=== PATIENT | male | born 1970 | race Caucasian/White ===

== ENCOUNTER 2021-03-15 22:52 | Inpatient (IN) ==
--- NOTE | 2021-03-15 23:14 | Emergency Department Note ---
History of Present Illness General Chief complaint: Mental Health Evaluation Stated complaint: MENTAL HEALTH EVAL Time Seen by Provider: 03/15/21 23:05 Source: patient and police Mode of arrival: EMS Limitations: no limitations History of Present Illness Provider complaint: mental health evaluation This is a 50-year-old male presents emergency department for mental health evaluation. Patient brought in by police and EMS. Per police report patient walked up to staff at a fire station, told them he was not feeling well and had thoughts of hurting himself. He then attempted to run away at which point he was tackled by one of the volunteer firefighters, and during the struggle attempted to wrap a hose around his neck. Please report fire staff denied that he ever lost consciousness or had any trouble breathing. Patient denies any pain or concern for injury from this event. He denies any difficulty swall owing, difficulty breathing, sense of neck swelling or pain. Patient states he does take multiple medications and did consume alcohol this evening. He denies any recreational drug use. Pt seen during a time of high acuity and national emergency pandemic while wearing PPE. Home Medications Medication Instructions Recorded Confirmed Type Gabapentin (Neurontin) 300 mg PO TID #0 04/01/08 History Mirtazapine 15 mg PO HS #0 06/20/14 History ATORVASTATIN (LIPITOR) 20 mg PO DAILY #30 06/27/14 History Prednisone 20 mg PO DAILY 3 Days #0 06/27/14 History OXYCODONE/ACETAMINOPHEN 5MG/325MG 1 - 2 tabs PO Q4H PRN #0 tab 07/05/14 History (PERCOCET 5MG/325MG) Allergies Allergy/AdvReac Type Severity Reaction Status Date / Time No Known Allergies Allergy Unverified 07/05/14 01:41 Past Med/Surg History Social History Smoking Status: Never smoker Tobacco Type: Smokeless Tobacco (Dip or Chew) Hx Alcohol Use: Yes Alcohol type: hard liquor Hx Substance Use: No Preferred Language: Jamaican Communication Ability: Effective Clinical Material Handler Required: No Beliefs That Will Affect Care: None Current Living Situation: Alone Feels Safe at Home: Yes Assistive Devices: None Review of Systems A total of 10 systems reviewed and were otherwise negative All systems reviewed & are unremarkable except as noted in HPI & below Physical Exam Vital Signs Vital Signs - 24 hr 03/15/21 23:11 03/16/21 01:54 Temperature 36.3 C L Temperature Source Oral Pulse Rate 104 H Pulse Rate [Finger] 104 H 88 Pulse Rhythm Regular Pulse Rhythm [Finger] Regular Pulse Strength Normal Pulse Strength [Finger] Normal Respiratory Rate 16 16 Respiratory Effort / Characteristics Non-Labored Non-Labored Spontaneous Respiratory Depth Normal Normal Respiratory Pattern Regular Regular Blood Pressure 123/67 Blood Pressure [Right Arm] 123/67 107/56 L Blood Pressure Mean 85 Blood Pressure Mean [Right Arm] 85 73 Blood Pressure Position Lying Blood Pressure Position [Right Arm] Lying Right Lateral Pulse Oximetry 95 99 Oxygen Delivery Method Room Air Room Air Sepsis Recent Fever Within 48 Hours No Sepsis New/Unexplained Change in Mental Status No Sepsis Action Taken by Nursing No Action Required GENERAL: alert, well appearing, well nourished, no distress, non-toxic EYE EXAM: normal conjunctiva, PERRL and EOM's grossly intact OROPHARYNX: no exudate, no erythema, lips, buccal mucosa, and tongue normal and mucous membranes are moist NECK: supple, no nuchal rigidity, no adenopathy, non-tender, FROM, no stridor, no areas of contusion or ligature porter LUNGS: Clear to auscultation. Normal chest wall mechanics, no w/r/r HEART: no murmurs, S1 normal and S2 normal ABDOMEN: abdomen soft, non-tender, normo-active bowel sounds, no masses, no r ebound or guarding. BACK: Back is symmetrical on inspection and there is no deformity, no midline t enderness, no CVA tenderness. SKIN: no rashes and no bruising UPPER EXTREMITIES: upper extremities are grossly normal. FROM, nml pulses b/l. LOWER EXTREMITIES: No pitting edema. FROM, nml pulses b/l. NEURO EXAM: Normal sensorium, cranial nerves II-XII grossly intact, normal speech, no gross weakness of arms, no gross weakness of legs. Gross sensation intact. No ataxia. Course Administered Medications Sodium Chloride (Nss 1000ml) 1,000 mls @ 100 mls/hr IV .Q10H MABEL Stop: 03/17/21 01:22 Last Admin: 03/16/21 05:46 Dose: 100 mls/hr Documented by: [id number] Lorazepam (Ativan) 1 mg in 2 mls @ 2 mls/min IV UD PRN; Protocol PRN Reason: EtOH Withdrawl AWSS Score 6,7 Stop: 04/15/21 05:22 Last Admin: 03/16/21 06:06 Dose: 2 mls/min Documented by: [id number] Ondansetron HCl (Ondansetron Inj 2 Mg/Ml 2 Ml Vial) 4 mg IV Q6H PRN PRN Reason: Nausea Stop: 04/15/21 05:22 Last Admin: 03/16/21 05:43 Dose: 4 mg Documented by: [id number] Discontinued Medications Gabapentin (Gabapentin 1200mg Loading Dose) 1,200 mg PO TODAY@0500 [facility] Stop: 03/16/21 05:01 Last Admin: 03/16/21 04:54 Dose: 1,200 mg Documented by: [id number] Lorazepam (Lorazepam 1 Mg Tab) 2 mg PO NOW STA Stop: 03/15/21 23:23 Last Admin: 03/15/21 23:28 Dose: 2 mg Documented by: [id number] Ondansetron HCl (Ondansetron Inj 2 Mg/Ml 2 Ml Vial) Confirm Administered Dose 4 mg .ROUTE .STK-MED ONE Stop: 03/16/21 05:38 Last Admin: 03/16/21 05:52 Dose: Not Given Documented by: [id number] Medical Decision Making Differential Diagnosis Differential diagnoses considered include mood disorder, infection, hypoglycemia, electrolyte abnormalities, cardiac sources, intracerebral event, toxicologic, neurologic, as well as others. Medical Records Attestation: I reviewed the patient's medical records. Home Medications Current Medication List: was personally reviewed by me Laboratory Data Attestation: I reviewed the patient's lab results. Result diagrams: 03/15/21 23:43 03/15/21 23:43 Lab Results 03/15/21 03/15/21 03/15/21 Range/Units 23:43 23:43 23:43 WBC 5.39 (4.8-10.8) K/uL RBC 4.05 L (4.7-6.1) M/uL Hgb 13.1 L (14.0-18.0) g/dL Hct 38.8 L (42-52) % MCV 95.8 (80-100) fL MCH 32.3 (25-34) pg MCHC 33.8 (32-36) g/dL RDW Std Deviation 45.1 (36.4-46.3) fL RDW Coeff of Ronny 12.9 (11.5-14.5) % Plt Count 347 (130-400) K/uL MPV 8.9 (7.4-10.4) fL Immature Gran % (Auto) 0.2 % Neut % (Auto) 50.0 % Lymph % (Auto) 40.3 % [place] % (Auto) 5.2 % Eos % (Auto) 3.9 % Baso % (Auto) 0.4 % Neut # (Auto) 2.70 (1.4-6.5) K/uL Lymph # (Auto) 2.17 (1.2-3.4) K/uL [place] # (Auto) 0.28 (0.11-0.59) K/uL Eos # (Auto) 0.21 (0-0.5) K/uL Baso # (Auto) 0.02 (0-0.2) K/uL Immature Gran # (Auto) 0.01 (0.00-0.02) K/uL Sodium 141 (136-145) mmol/L Potassium 3.5 (3.5-5.1) mmol/L Chloride 107 (98-107) mmol/L Carbon Dioxide 27 (21-32) mmol/L Anion Gap 7 (3-11) BUN 15 (6-23) mg/dl Creatinine 0.92 (0.6-1.4) mg/dl Est Cr Clr Drug Dosing 98.7 ml/min Est GFR ( Amer) 111.2 ml/min Est GFR (Non-Af Amer) 96.0 ml/min BUN/Creatinine Ratio 16.3 (10-20) Glucose 96 (70-99(Fasting)) mg/dl Calcium 8.1 L (8.5-10.1) mg/dl Total Bilirubin 0.2 (0.2-1.0) mg/dl AST 23 (13-39) U/L ALT 21 (7-52) U/L Alkaline Phosphatase 61 (34-104) U/L Total Protein 6.4 (6.0-8.3) gm/dl Albumin 4.0 (3.4-5.0) gm/dl Globulin 2.4 L (2.5-4.0) gm/dl Albumin/Globulin Ratio 1.7 (0.9-2) TSH (0.300-4.500) uIu/ml Salicylates < 3.0 L (3.0-30) mg/dl Acetaminophen < 3 L (10-30) ug/ml Valproic Acid < 10 L (50-100) mcg/ml [place] < 0.1 L (0.6-1.2) mmol/L Ethyl Alcohol mg/dL (<10.0) mg/dl SARS-CoV-2, RNA, NAAT (NEGATIVE) 03/15/21 03/15/21 03/16/21 Range/Units 23:43 23:43 01:50 WBC (4.8-10.8) K/uL RBC (4.7-6.1) M/uL Hgb (14.0-18.0) g/dL Hct (42-52) % MCV (80-100) fL MCH (25-34) pg MCHC (32-36) g/dL RDW Std Deviation (36.4-46.3) fL RDW Coeff of Ronny (11.5-14.5) % Plt Count (130-400) K/uL MPV (7.4-10.4) fL Immature Gran % (Auto) % Neut % (Auto) % Lymph % (Auto) % [place] % (Auto) % Eos % (Auto) % Baso % (Auto) % Neut # (Auto) (1.4-6.5) K/uL Lymph # (Auto) (1.2-3.4) K/uL [place] # (Auto) (0.11-0.59) K/uL Eos # (Auto) (0-0.5) K/uL Baso # (Auto) (0-0.2) K/uL Immature Gran # (Auto) (0.00-0.02) K/uL Sodium (136-145) mmol/L Potassium (3.5-5.1) mmol/L Chloride (98-107) mmol/L Carbon Dioxide (21-32) mmol/L Anion Gap (3-11) BUN (6-23) mg/dl Creatinine (0.6-1.4) mg/dl Est Cr Clr Drug Dosing ml/min Est GFR ( Amer) ml/min Est GFR (Non-Af Amer) ml/min BUN/Creatinine Ratio (10-20) Glucose (70-99(Fasting)) mg/dl Calcium (8.5-10.1) mg/dl Total Bilirubin (0.2-1.0) mg/dl AST (13-39) U/L ALT (7-52) U/L Alkaline Phosphatase (34-104) U/L Total Protein (6.0-8.3) gm/dl Albumin (3.4-5.0) gm/dl Globulin (2.5-4.0) gm/dl Albumin/Globulin Ratio (0.9-2) TSH 1.943 (0.300-4.500) uIu/ml Salicylates (3.0-30) mg/dl Acetaminophen (10-30) ug/ml Valproic Acid (50-100) mcg/ml [place] (0.6-1.2) mmol/L Ethyl Alcohol mg/dL 166.5 H (<10.0) mg/dl SARS-CoV-2, RNA, NAAT POSITIVE A* (NEGATIVE) MDM Narrative This is a 50-year-old male brought in by police and EMS as a 302 petition after making a statement of suicidal ideation and active furtherance in front of witnesses at the fire station. I do not suspect occult injury as soon as the patient attempted to tie the strap around his neck he was immediately tackled and this was removed. Patient remained hemodynamically stable and afebrile throughout. No dysphagia, dysphonia, or dyspnea. Patient found to have alcohol intoxication and did admit to using alcohol earlier in the evening. Unfortunately patient was found to be Covid positive in addition and so required medical admission with consult to psychiatry. No evidence of alcohol withdrawal in the emergency room, patient remained hemodynamically stable and afebrile throughout. Impression & Plan Depression, Alcoholic intoxication, COVID-19 Discharge Plan Visit Data Chief Complaint: Mental Health Evaluation Stated Complaint: MENTAL HEALTH EVAL ED Provider: Anna Hanson Discharge Problem: Depression, Alcoholic intoxication, COVID-19 Patient Disposition: Admitted As Inpatient Discharge Instructions Interventions: ED Discharge Assessment Last Done: 03/16/21 05:02 Discharge Problem: Depression Qualifiers: Depression Type: unspecified Qualified Code(s): F32.A - Depression, unspecified Alcoholic intoxication Qualifiers: Complication of substance-induced condition: uncomplicated Qualified Code(s): F10.920 - Alcohol use, unspecified with intoxication, uncomplicated
[2021-03-15] MEDS ORDERED: LORazepam 1 MG TAB PO STA (23:22)
[2021-03-15 23:51] LABS: Basophils # (auto) 0.02 K/uL (0-0.2); Basophils % (auto) 0.4 %; Eosinophils # (auto) 0.21 K/uL (0-0.5); Eosinophils % (auto) 3.9 %; Hematocrit (blood only) 38.8 % (42-52); Hemoglobin 13.1 g/dL (14.0-18.0); Immature Granulocytes # (auto) 0.01 K/uL (0.00-0.02); Immature Granulocytes % (auto) 0.2 %; Lymphocytes # (auto) 2.17 K/uL (1.2-3.4); Lymphocytes % (auto) 40.3 %; Mean Corpuscular Hemoglobin 32.3 pg (25-34); Mean Corpuscular Hgb Conc 33.8 g/dL (32-36); Mean Corpuscular Volume 95.8 fL (80-100); Mean Platelet Volume 8.9 fL (7.4-10.4); Monocytes # (auto) 0.28 K/uL (0.11-0.59); Monocytes % (auto) 5.2 %; Platelet Count 347 K/uL (130-400); RDW Coefficient of Variation 12.9 % (11.5-14.5); RDW Standard Deviation 45.1 fL (36.4-46.3); Red Blood Count 4.05 M/uL (4.7-6.1); White Blood Count 5.39 K/uL (4.8-10.8)
[2021-03-16 00:09] LABS: Albumin Globulin Ratio 1.7 (0.9-2); BUN Creatinine Ratio 16.3 (10-20); Bilirubin,Total 0.2 mg/dl (0.2-1.0); Calcium 8.1 mg/dl (8.5-10.1); Creatinine Clr Calc Pharmacy 98.7 ml/min; Est GFR (African American) 111.2 ml/min; Globulin 2.4 gm/dl (2.5-4.0); Potassium 3.5 mmol/L (3.5-5.1); Total Protein 6.4 gm/dl (6.0-8.3)
[2021-03-16 00:30] LABS: Acetaminophen < 3 ug/ml (10-30); Lithium < 0.1 mmol/L (0.6-1.2); Salicylate < 3.0 mg/dl (3.0-30); Valproic Acid < 10 mcg/ml (50-100)
[2021-03-16] MEDS ORDERED: GABAPENTIN 1200MG ALCOHOL WITHDRAWAL LOAD PO STA (04:33)
[2021-03-16] MEDS ORDERED: GABAPENTIN 1200MG LOADING DOSE PO SCH (05:00)
[2021-03-16] MEDS ORDERED: LORazepam 2 MG/4 ML VIAL IV PRN (05:23)
[2021-03-16] MEDS ORDERED: ACETAMINOPHEN 325 MG TAB PO PRN (05:23)
[2021-03-16] MEDS ORDERED: ONDANSETRON INJ 2 MG/ML 2 ML VIAL IV PRN (05:23)
[2021-03-16] MEDS ORDERED: MULTI-VITAMIN INFUSION 10 ML, THIAMINE HCL 100 MG, FOLIC ACID 1 MG in SODIUM CHLORIDE 0... IV ONE (05:23)
[2021-03-16] MEDS ORDERED: ATIVAN IV ALCOHOL WITHDRAWL IV PRN (05:23)
[2021-03-16] MEDS ORDERED: LORazepam 1 MG/2 ML VIAL IV PRN (05:23)
[2021-03-16] MEDS ORDERED: NITROGLYCERIN SL 0.4 MG/TAB TAB SL PRN (05:23)
[2021-03-16] MEDS ORDERED: GABAPENTIN 600 MG TAB PO ONE (05:23)
[2021-03-16] MEDS ORDERED: LORazepam 3 MG/6 ML VIAL IV PRN (05:23)
[2021-03-16] MEDS ORDERED: ONDANSETRON INJ 2 MG/ML 2 ML VIAL ONE (05:37)
[2021-03-16] MEDS: SODIUM CHLORIDE 0.9% 1000ML 1,000 ML IV SCH ×2 (05:46→16:25)
[2021-03-16 06:46] LABS: Basophils # (auto) 0.02 K/uL (0-0.2); Basophils % (auto) 0.3 %; Eosinophils # (auto) 0.17 K/uL (0-0.5); Eosinophils % (auto) 2.7 %; Hematocrit (blood only) 37.9 % (42-52); Hemoglobin 12.6 g/dL (14.0-18.0); Immature Granulocytes # (auto) 0.01 K/uL (0.00-0.02); Immature Granulocytes % (auto) 0.2 %; Lymphocytes # (auto) 1.94 K/uL (1.2-3.4); Lymphocytes % (auto) 31.1 %; Mean Corpuscular Hemoglobin 31.6 pg (25-34); Mean Corpuscular Hgb Conc 33.2 g/dL (32-36); Mean Platelet Volume 8.8 fL (7.4-10.4); Monocytes # (auto) 0.44 K/uL (0.11-0.59); Monocytes % (auto) 7.1 %; Neutrophils # (auto) 3.66 K/uL (1.4-6.5); Neutrophils % (auto) 58.6 %; Platelet Count 321 K/uL (130-400); RDW Coefficient of Variation 12.7 % (11.5-14.5); RDW Standard Deviation 43.7 fL (36.4-46.3); Red Blood Count 3.99 M/uL (4.7-6.1); White Blood Count 6.24 K/uL (4.8-10.8)
[2021-03-16 06:57] LABS: Appearance Urine Clear (Clear); Bilirubin Urine Negative (Negative); Blood Urine Negative (Negative); Color Urine Yellow; Glucose Urine UA Negative (Negative); Ketones Urine Negative (Negative); Leukocyte Esterase Urine Negative (Negative); Nitrite Urine Negative (Negative); Protein Urine Negative (Negative); Specific Gravity Urine 1.019 (1.000-1.030); Urobilinogen Urine Negative (Negative); pH Urine 5.5 (4.5-7.5)
[2021-03-16 07:28] LABS: Calcium 8.1 mg/dl (8.5-10.1); Creatinine Clr Calc Pharmacy 150.3 ml/min; Est GFR (African American) 130.6 ml/min; Est GFR (Non-African American) 112.6 ml/min; Magnesium 1.8 mg/dl (1.7-2.4); Potassium 3.5 mmol/L (3.5-5.1)
[2021-03-16 07:39] LABS: Amphetamines+Metham, Urine Neg (Neg); Barbiturates, Urine Neg (Neg); Benzodiazepine, Urine Neg (Neg); Cocaine, Urine Neg (Neg); MDMA (Ecstacy), Urine Neg (Neg); Methadone, Urine Neg (Neg); Opiate, Urine Neg (Neg); Phencyclidine, Urine Neg (Neg)
[2021-03-16] MEDS: FOLIC ACID 1 MG in SYRINGE 9.8 ML IV SCH (08:22)
[2021-03-16] MEDS: THIAMINE HCL 100 MG in SYRINGE 9 ML IV SCH (08:22)
--- NOTE | 2021-03-16 08:57 | History and Physical Report ---
DATE OF ADMISSION: 03/16/2021. CHIEF COMPLAINT: Suicidal ideation, COVID 19. HISTORY OF PRESENT ILLNESS: A 50-year-old male with past medical history significant for low back pain, depression, insomnia, who had been to fire station today and told them that he was not feeling well and had thoughts of hurting himself and then he got up to run away and he was tackled by one of the volunteer firefighters and in the struggle he tried to grab a hose around his neck. As per the ER, he did not lose consciousness and he was brought in here. As per the ER, he admitted consume alcohol in the evening and denied any drug use.Routine COVID test came back positive. His alcohol level came back as 166. His lithium, valproic acid, acetaminophen, salicylate levels are okay. In the ER, he received a dose of 2 mg of Ativan and currently he is mostly drowsy. He is sleeping on his belly and he says he drinks alcohol, but he does not tell which kind of alcohol drinks. He tells he is doing okay. Denies any chest pain or abdominal pain, nausea, or any fever., Very drowsy and not opening his eyes and could not get much history from the patient. ALLERGIES: No known drug allergies. PAST MEDICAL HISTORY: As mentioned above. PAST SURGICAL HISTORY: No surgical history on file. MEDICATIONS: As per [facility], the patient is on Flexeril 5 mg p.o. t.i.d. p.r.n., Remeron 30 mg p.o. daily, atorvastatin 20 mg p.o. daily, gabapentin 400 mg p.o. t.i.d. FAMILY HISTORY: Significant for no family history on file. SOCIAL HISTORY: As per Epic. No smoking, alcohol, 16.7 standard drinks of alcohol per week. No drug use as per Epic. REVIEW OF SYSTEMS: As per [facility]. Could not get review of systems as the patient is very drowsy. PHYSICAL EXAMINATION: GENERAL: The patient is drowsy, not in acute distress. VITAL SIGNS: Temperature 36.3, pulse 88, respiratory rate 16, blood pressure 107/56, oxygen 99% on room air. HEENT: Head is atraumatic. NECK: No neck masses seen. CARDIOVASCULAR: S1 and S2 heard. No murmurs. RESPIRATORY SYSTEM: Normal AP diameter. No accessory muscle use. No wheezing, no crackles. ABDOMEN: Could not get exam of the abdomen as the patient has been sleeping on belly. CENTRAL NERVOUS SYSTEM: Very drowsy, answers only few questions with saying yes or no. EXTREMITIES: No edema, no erythema. LABORATORY DATA: WBC 5.3, hemoglobin 13.1, hematocrit 38.8, platelets 347. Sodium 141, potassium 3.5, chloride 107, bicarbonate 27, BUN 15, creatinine 0.9, serum glucose 96, calcium 8.1, total bilirubin 0.2, AST 23, ALT 21, alkaline phosphatase 61. TSH 1.9. Salicylate less than 3. Acetaminophen less than 3, valproic acid less than 10. [place] less than 0.1. Ethyl alcohol 166. SARS-CoV-2 RNA positive. ASSESSMENT AND PLAN: This is a 50-year-old male who presents with suicidal ideation. 1. Suicidal ideation. We will consult psych, one-on-one, and suicidal precautions. Monitor in the hospital. 2. COVID-19 positive that is reason we called for admission. Currently, does not meet any criteria for treatment. We will follow the chest x-ray and CRP levels. 3. Depression, insomnia. We will hold his home medications for now until we get to know what type of medication exactly he is taking and also await psychiatry inputs. 4. Alcoholism. Will do banana bag, iv thiamin and folic acid. gabapentin protocol with iv ativan prn. Close monitor for withdrawal. 4. DVT prophylaxis: Sequential compression devices for now. DISPOSITION: Monitor in [employer]. PT/OT prior to discharge. Social service to help with discharge planning. Job ID: [id number] [facility]
[2021-03-16] MEDS: GABAPENTIN 600 MG TAB PO SCH ×3 (12:25→21:50)
--- NOTE | 2021-03-16 12:39 | Psychiatric Consultation ---
Date of Consultation March 16, 2021 Impression / Recommendations Impression 50 year old with a history of alcohol use disorder with recent relapse following residential treatment with worsening depression and SI in context of missing multiple doses of his medication and recent triggering experience of processing past trauma. Diagnostically consistent with unspecified depression-likely a combination of BPD, alcohol-induced and MDD vs BPAD. Schizoaffective disorder seems less convincing given no clear current or historical presentation with psychosis, sounds like BPAD is more likely. Will verify outpatient medications and then restart lithium and consider if SSRI addition appropriate. For now he consents to restarting mirtazapine and naltrexone, reviewed risks, benefits and alternatives. Psych liason will provide additional coping resources. Currently he is deemed unstable and requires ongoing hospitalization (on medical floor due to COVID+ status prohibiting psychiatric admission for now) for diagnostic clarification, safety and stabilization, medication management and development of further coping skills. High acute risk of harm to self given ongoing intermittent SI with recent plan of hanging himself, medication non-adherence, lack of outpatient resources ([facility] after [facility] tx d/c). (1) MDD (major depressive disorder), recurrent episode, severe: (2) Alcohol use disorder, moderate, dependence: (3) COVID-19: 03/16/21: -Continue 1-on-1 for safety -302 warrant, cannot leave AMA -Continue AWSS -Restart mirtazapine 15mg qhs and naltrexone 50mg qAM -Will verify dose for lithium before restarting and consider option for SSRI -SW and psych liason helping to provide him with additional resources re: DBT, coping skills, substance use recovery and will attempt to set him up with [facility] mental [facility] follow-up -He's agreeable to AA meetings after discharge Risk Factors Assessment Male: Yes : Yes Do You Have Access To A Gun?: No Mental Health Diagnoses: Yes Substance Use Disorders: Yes Hopelessness: Yes Telehealth Telehealth Options: 2-way audio and video For the duration of the visit, provider was performing the assessment from: The same facility as the patient After establishing a telemedicine visit, patient was: Patient was verified with two unique identifiers, Patient/authorized rep acknowledged consent and understanding and Gave permission to continue telehealth session Total Time Spent (minutes): 35 Psych History Identifying Data 50 yo man with past psychiatric history of BPD, schizoaffective disorder, trauma and alcohol use disorder admitted due to COVID+ status after presenting for SI on 302 warrant. Seen via zoom for telemedicine visit due to COVID+ status. Chief Complaint "I honestly don't know". History of Present Illness Chris describes a long history of psychiatric symptoms including BPD and schizoaffective disorder, depression and significant childhood trauma. He was recently at inpatient substance use treatment facility [facility] and discharged last week after a 28 day admission. While there he began discussing some of his childhood trauma and after discharge these memories lead to worsening mood and trauma that "set off all of this" leading him to self-medicate by drinking alcohol. He's been drinking about 6, 12ounce cans of hard seltzer per day. He also lost his medications (has since been informed they were handed over to [facility] police who have them securely stored) and was off them for 3-4 days and this lead to him feeling "out of whack" and developing SI. He went to the fire station to get help because "I was on the verge of killing myself" states he was planning to hang himself. He was also drinking during this time and attempted to then flee as the fire station personnel attempted to help him leading to police involvement and being brought to the ED. He was being prescribed lithium (unknown dose), mirtazapine, gabapentin and "some other new medication"-clarified as naltrexone from in substance use facility and [facility] that [facility]. He's agreeable to [facility]establ[facility] with [facility]. Currently he denies SI but per discussion with nursing he's continued to make intermittent statements of SI since his admission. He endorses significant symptoms of depression and reports history of marvin with prior hospitalization for such. He states his desire to learn more about BPD as he wants to do DBT treatment and explore past trauma. He remains agreeable to treatment at this time. Past Psychiatric History Outpatient Services: none currently, [facility] has been prescribing meds through [facility] Previous Psych Admissions: multiple, most recently 2018 in [place] Do You Have Access To A Gun?: No History of Previous Suicide Attempt: No Past Medication Trials: hx sertraline, hx depakote Allergies Allergy/AdvReac Type Severity Reaction Status Date / Time No Known Allergies Allergy Unverified 07/05/14 01:41 Home Medications Medication Instructions Recorded Confirmed Type Gabapentin (Neurontin) 300 mg PO TID #0 04/01/08 History Mirtazapine 15 mg PO HS #0 06/20/14 History ATORVASTATIN (LIPITOR) 20 mg PO DAILY #30 06/27/14 History Prednisone 20 mg PO DAILY 3 Days #0 06/27/14 History OXYCODONE/ACETAMINOPHEN 5MG/325MG 1 - 2 tabs PO Q4H PRN #0 tab 07/05/14 History (PERCOCET 5MG/325MG) Family History mother with paranoid schizoaffective disorder Substance Abuse History alcohol use disorder intermittent marijuana use Personal History Living Arrangements: Home (with aunt and uncle in [place]) Childhood: significant trauma Highest Grade Completed: High School Graduate Employment Status: Self-Employed (intermittent work ) Beliefs That Will Affect Care: None History of Legal Problems: DUI in 2014 Patient History Medical History (Updated 03/16/21 @ 15:17 by Karen Eason MD) Borderline personality disorder Social History Smoking Status: Never smoker Tobacco Type: Smokeless Tobacco (Dip or Chew) Hx Alcohol Use: Yes Alcohol type: hard liquor Hx Substance Use: No Preferred Language: Djiboutian Communication Ability: Effective Painter And Grader [place] Required: No Beliefs That Will Affect Care: None Current Living Situation: Alone Feels Safe at Home: Hesitant to Answer Assistive Devices: None Physical Exam Psychiatric: Orientation: alert Apperance: appropriately dressed and appropriately groomed Eye Contact: good eye contact Motor Behavior: no abnormal motor movements Speech: normal rate/rhythm/volume of speech Affect: + depressed affect Mood: + depressed mood and + anxious mood Thought Process: goal directed thought process Thought Content: reality based without delusions Suicidal Thoughts: + reports suicidal thoughts (reports intermittent SI ) Homicidal Thoughts: denies homicidal thoughts Hallucinations: no auditory hallucinations and no visual hallucinations Cognition: recent memory grossly intact, remote memory grossly intact, attention grossly intact and language grossly intact Estimated Intelligence: consistent with education level Insight: + impaired insight Judgement: + impaired judgement Vital Signs (Past 24 Hours): Last Vital Signs Temp 36.6 C 03/16/21 10:30 Pulse 89 03/16/21 10:30 Resp 16 03/16/21 10:30 BP 134/95 03/16/21 10:30 Pulse Ox 95 03/16/21 10:30 Review of Systems All systems reviewed & are unremarkable except as noted in HPI & below Results & Data (PSY) Laboratory Results electrolytes, LFTs wnl Medications Administered Gabapentin (Gabapentin 600 Mg Tab) 600 mg PO Q6H [facility] Stop: 03/16/21 17:01 Last Admin: 03/16/21 12:25 Dose: 600 mg Documented by: [id number] Sodium Chloride (Nss 1000ml) 1,000 mls @ 100 mls/hr IV .Q10H [facility] Stop: 03/17/21 01:22 Last Admin: 03/16/21 05:46 Dose: 100 mls/hr Documented by: [id number] Thiamine HCl 100 mg/ Syringe 10 mls @ 2 mls/min IV QAM [facility] Stop: 04/15/21 08:59 Last Admin: 03/16/21 08:22 Dose: 2 mls/min Documented by: [id number] Folic Acid 1 mg/ Syringe 10 mls @ 5 mls/min IV QAM [facility] Stop: 04/15/21 08:59 Last Admin: 03/16/21 08:22 Dose: 5 mls/min Documented by: [id number] Lorazepam (Ativan) 1 mg in 2 mls @ 2 mls/min IV UD PRN; Protocol PRN Reason: EtOH Withdrawl AWSS Score 6,7 Stop: 04/15/21 05:22 Last Admin: 03/16/21 06:06 Dose: 2 mls/min Documented by: [id number] Lorazepam (Ativan) 2 mg in 4 mls @ 4 mls/min IV UD PRN; Protocol PRN Reason: EtOH Withdrawl AWSS Score 8,9 Stop: 04/15/21 05:22 Last Admin: 03/16/21 09:29 Dose: 4 mls/min Documented by: [id number] Ondansetron HCl (Ondansetron Inj 2 Mg/Ml 2 Ml Vial) 4 mg IV Q6H PRN PRN Reason: Nausea Stop: 04/15/21 05:22 Last Admin: 03/16/21 05:43 Dose: 4 mg Documented by: [id number] Coding Level of Care Code 81750 Inpt Consult Level 4 Diagnoses MDD (major depressive disorder), recurrent episode, severe F33.2 Alcohol use disorder, moderate, dependence F10.20 COVID-19 U07.1
--- NOTE | 2021-03-16 15:28 | Communication Note ---
Date of Service: March 16, 2021 50-year-old male with suicidal ideation was admitted early this morning and was noted to be Covid 19 positive. Has been seen by psychiatrist and medications have been started. He remains under observation with one-to-one sitter. Medically and hemodynamically stable. Will have full progress note tomorrow. Dr Alex Hopper
[2021-03-16] MEDS: NICOTINE 14 MG/24 HR PATCH TD SCH (17:03)
[2021-03-16] MEDS ORDERED: MIRTAZAPINE TAB 15 MG TAB PO SCH (21:00)
[2021-03-16] MEDS ORDERED: diphenhydrAMINE Capsule 25 MG CAP PO ONE (21:34)
[2021-03-17] MEDS: FOLIC ACID 1 MG in SYRINGE 9.8 ML IV SCH (07:33)
[2021-03-17] MEDS: THIAMINE HCL 100 MG in SYRINGE 9 ML IV SCH (07:34)
[2021-03-17] MEDS: NALTREXONE HCL 50 MG TAB PO SCH (08:13)
[2021-03-17] MEDS: GABAPENTIN 600 MG TAB PO SCH ×2 (08:14→17:16)
[2021-03-17] MEDS: NICOTINE 14 MG/24 HR PATCH TD SCH (08:14)
--- NOTE | 2021-03-17 09:39 | Psychiatric Progress Note ---
Date of Service March 17, 2021 Impression / Recommendations Impression 50 year old with a history of alcohol use disorder with recent relapse following residential treatment with worsening depression and SI in context of missing multiple doses of his medication and recent triggering experience of processing past trauma. Diagnostically consistent with unspecified depression-likely a combination of BPD, alcohol-induced and MDD vs BPAD. Schizoaffective disorder seems less convincing given no clear current or historical presentation with psychosis, sounds like BPAD is more likely. Will verify outpatient medications and then restart lithium and consider if SSRI addition appropriate. For now he consents to restarting mirtazapine and naltrexone, reviewed risks, benefits and alternatives. Psych liason will provide additional coping resources. Currently he is deemed unstable and requires ongoing hospitalization (on medical floor due to COVID+ status prohibiting psychiatric admission for now) for diagnostic clarification, safety and stabilization, medication management and development of further coping skills. High acute risk of harm to self given ongoing intermittent SI with recent plan of hanging himself, medication non-adherence, lack of outpatient resources ([facility] after [facility] tx d/c). 03/17/21: Concern that he may be minimizing some of his symptoms, including SI, so will continue with 1-on-1 today even though he is denying SI today. Discussed medication options in detail for help with his mood. He wants to start lithium again. Tolerating other medications well without any side effects. Starting [place]: TSH, Cr, BUN, electrolytes, LFTs, CBC with platelets, UA, and EKG reviewed. [place] carbonate (LiCO3) 300mg qhs and increase by 300mg every 3- 7 days. Patient educated on risks of dehydration, renal, thyroid, cardiac, drug interactions (NSAIDs, ACEIs, angiotensin receptor antagonists). He also consents to starting escitalopram 5mg tomorrow morning, reviewed risks/benefits/alternatives, side effects including but not limited to GI iss ues, GUERRERO, sexual side effects, risk for marvin reviewed. States he has an appointment on with [place] in [place] Dr. Jalloh for psychiatry. (1) MDD (major depressive disorder), recurrent episode, severe: (2) Alcohol use disorder, moderate, dependence: (3) COVID-19: 03/17/21: -Continue 1-on-1 -Increase mirtazapine to 30mg qhs for insomnia which he consents to -Start Li 300mg qhs -Start escitalopram 5mg qAM -Working to verify recent medications and will confirm [facility] with [facility] 03/16/21: -Continue 1-on-1 for safety -302 warrant, cannot leave AMA -Continue AWSS -Restart mirtazapine 15mg qhs and naltrexone 50mg qAM -Will verify dose for lithium before restarting and consider option for SSRI -SW and psych liason helping to provide him with additional resources re: DBT, coping skills, substance use recovery and will attempt to set him up with [place] mental health follow-up -He's agreeable to AA meetings after discharge Risk Factors Assessment Male: Yes : Yes Do You Have Access To A Gun?: No Mental Health Diagnoses: Yes Substance Use Disorders: Yes Hopelessness: Yes Interval History Identifying Information 50 yo man with past psychiatric history of BPD, schizoaffective disorder, trauma and alcohol use disorder admitted due to COVID+ status after presenting for SI on 302 warrant. Chief Complaint "I'm not too bad". Review of Systems Notes Endorses diff sleep, stable appetite Telehealth Telehealth Options: Telephone only For the duration of the visit, provider was performing the assessment from: The same facility as the patient After establishing a telemedicine visit, patient was: Patient was verified with two unique identifiers, Patient/authorized rep acknowledged consent and understanding and Gave permission to continue telehealth session Total Time Spent (minutes): 30 Subjective Subjective Patient was seen & assessed and interval progress reviewed. He became upset overnight and agitated with his IV. He met with psych liason to review resources and treatment plan. He also disclosed to psych liason that he had SI with plan of [facility] himself [facility] a [facility] [place] last months and attempted to receive inpatient treatment at that time. Yesterday was discussing ways he could attempt suicide using items in his room including tying a knot in a sheet on his bed and hanging it over the bathroom door to test it's strength and attempting to tie a noose with it. Today Chris reports he is "not too bad". He had trouble sleeping last night and woke up at 1am and 4am. He called a treatment facility where he was recently for alcohol use, [facility] in [place] and they have a copy of his medication list. He denies any SI today and states he's working on the recovery and behavioral health workbook. States that he thinks he caught COVID during his recent residential admission as his symptoms started about 10 days ago with sore throat. He is eager to restart his lithium and consider other medications to help with his mood. Reviews that he has been connected with the [facility] and has an appointment later this week. Is not forthcoming when asked about recent suicide attempt one month ago stating "if I did I forgot". Physical Exam Psychiatric Orientation: alert Speech: normal rate/rhythm/volume of speech Mood: + depressed mood Thought Process: goal directed thought process Thought Content: reality based without delusions Suicidal Thoughts: denies suicidal thoughts Homicidal Thoughts: denies homicidal thoughts Hallucinations: no auditory hallucinations and no visual hallucinations Cognition: remote memory grossly intact, attention grossly intact and language grossly intact; + recent memory not intact Estimated Intelligence: consistent with education level Insight: + impaired insight Judgement: + impaired judgement Vital Signs (Past 24 Hours) Last Vital Signs Temp 36.4 C L 03/17/21 06:54 Pulse 70 03/17/21 06:54 Resp 18 03/17/21 06:54 BP 135/98 03/17/21 06:54 Pulse Ox 95 03/17/21 06:54 Results & Data ([facility]) Current Inpatient Medications Current Inpatient Medications: Current Inpatient Medications Acetaminophen (Acetaminophen 325 Mg Tab) 650 mg PO Q4H PRN PRN Reason: Pain or Fever Stop: 04/15/21 05:22 Gabapentin (Gabapentin 600 Mg Tab) 600 mg PO Q8H [facility] Stop: 03/17/21 17:01 Last Admin: 03/17/21 08:14 Dose: 600 mg Documented by: Gabapentin (Gabapentin 600 Mg Tab) 600 mg PO Q12H [facility] Stop: 03/18/21 17:01 Gabapentin (Gabapentin 600 Mg Tab) 600 mg PO Q24H [facility] Stop: 03/19/21 17:01 Thiamine HCl 100 mg/ Syringe 10 mls @ 2 mls/min IV QAM [facility] Stop: 04/15/21 08:59 Last Admin: 03/17/21 07:34 Dose: Not Given Documented by: Folic Acid 1 mg/ Syringe 10 mls @ 5 mls/min IV QAM [facility] Stop: 04/15/21 08:59 Last Admin: 03/17/21 07:33 Dose: Not Given Documented by: Lorazepam (Ativan) 1 mg in 2 mls @ 2 mls/min IV UD PRN; Protocol PRN Reason: EtOH Withdrawl AWSS Score 6,7 Stop: 04/15/21 05:22 Last Admin: 03/16/21 06:06 Dose: 2 mls/min Documented by: Lorazepam (Ativan) 2 mg in 4 mls @ 4 mls/min IV UD PRN; Protocol PRN Reason: EtOH Withdrawl AWSS Score 8,9 Stop: 04/15/21 05:22 Last Admin: 03/16/21 09:29 Dose: 4 mls/min Documented by: Lorazepam (Ativan) 3 mg in 6 mls @ 4 mls/min IV ONCE PRN; Protocol PRN Reason: EtOH Withdrawl AWSS Score >=10 Stop: 04/15/21 05:22 Mirtazapine (Mirtazapine Tab 15 Mg Tab) 15 mg PO HS [facility] Stop: 04/15/21 20:59 Last Admin: 03/16/21 20:48 Dose: 15 mg Documented by: Miscellaneous (Remove Nicoderm Patch) 1 ea N/A DAILY@0859 [facility] Stop: 04/16/21 08:58 Last Admin: 03/17/21 09:23 Dose: 1 ea Documented by: Naltrexone HCl (Naltrexone Hcl 50 Mg Tab) [facility] Stop: 04/16/21 08:59 Last Admin: 03/17/21 08:13 Dose: 50 mg Documented by: Nicotine (Nicotine 14 Mg/24 Hr Patch) 14 mg TD [facility] Stop: 04/15/21 16:29 Last Admin: 03/17/21 08:14 Dose: 14 mg Documented by: Nitroglycerin (Nitroglycerin Sl 0.4 Mg/Tab Tab) 0.4 mg SL UD PRN PRN Reason: Chest Pain Stop: 04/15/21 05:22 Ondansetron HCl (Ondansetron Inj 2 Mg/Ml 2 Ml Vial) 4 mg IV Q6H PRN PRN Reason: Nausea Stop: 04/15/21 05:22 Last Admin: 03/16/21 05:43 Dose: 4 mg Documented by:
--- NOTE | 2021-03-17 14:42 | Hospitalist Progress Note ---
Date of Service March 17, 2021 Assessment & Plan (1) MDD (major depressive disorder), recurrent episode, severe: Plan: History of major depressive disorder and also borderline personality disorder Recent relapse with missing of multiple doses of medication Presented with suicidal ideation Appreciate psychiatric input and recommendation Remains stable with one-to-one sitter and no more evidence of suicidal ideation Has been started with lithium, mirtazapine and naltrexone Likely discharge in a day or 2 (2) Suicidal ideation: Plan: As above (3) Alcohol use disorder, moderate, dependence: Plan: Has alcohol abuse disorder Presently on withdrawal protocol on gabapentin and Ativan No signs and/or symptoms of withdrawal Strongly advised to quit drinking (4) COVID-19: Plan: Is fully vaccinated for COVID Noted to have Covid positive without any evidence of symptoms and and/or imaging findings We will repeat PCR based test tomorrow DVT prophylaxis He remains quite ambulate in the room no pharmacologic prophylaxis used CODE STATUS Full Admission and Anticipated Discharge Date Admission Date: March 16, 2021 Subjective 03/17/2021 The patient was seen and examined in Covid unit He remains on a one-to-one sitter and is not showing any suicidal ideation since admission He does not have any symptoms secondary to COVID-19 virus infection and he is vaccinated Review of Systems Review of Systems: All systems reviewed and are unremarkable except as noted below Physical Exam Physical Exam: Lying in bed comfortably Constitutional: well developed and well nourished; not ill appearing and not obese Eyes: PERRL, conjunctivae normal, anicteric sclerae ENMT: external ear and nose normal, oropharynx normal Neck: trachea midline, no thyromegaly Respiratory: no respiratory distress Auscultation: lungs clear to auscultation bilaterally Cardiovascular: Rate/Rhythm: regular rate and regular rhythm; not tachycardic Heart Sounds: normal S1 and normal S2; no murmur Extremities: no edema Gastrointestinal (Abdomen): Inspection/Auscultation: normal bowel sounds; abdomen not distended Percussion/Palpation: abdomen soft; abdomen nontender Musculoskeletal: No acute arthritis in any joint Neurologic: Alert, awake and oriented x3 Results & Data Results & Data ([facility]) Vital Signs (Past 12 Hours) Vital Signs Temp Pulse Resp BP Pulse Ox 03/17/21 06:54 36.4 C L 70 18 135/98 95 Medications Administered Current Inpatient Medications Acetaminophen (Acetaminophen 325 Mg Tab) 650 mg PO Q4H PRN PRN Reason: Pain or Fever Stop: 04/15/21 05:22 Escitalopram Oxalate (Escitalopram Oxalate 10 Mg Tab) 5 mg PO QAM [facility] Stop: 04/17/21 08:59 Gabapentin (Gabapentin 600 Mg Tab) 600 mg PO Q8H [facility] Stop: 03/17/21 17:01 Last Admin: 03/17/21 08:14 Dose: 600 mg Documented by: Gabapentin (Gabapentin 600 Mg Tab) 600 mg PO Q12H [facility] Stop: 03/18/21 17:01 Gabapentin (Gabapentin 600 Mg Tab) 600 mg PO Q24H [facility] Stop: 03/19/21 17:01 Thiamine HCl 100 mg/ Syringe 10 mls @ 2 mls/[facility] Stop: 04/15/21 08:59 Last Admin: 03/17/21 07:34 Dose: Not Given Documented by: Folic Acid 1 mg/ Syringe 10 mls @ 5 mls/[facility] Stop: 04/15/21 08:59 Last Admin: 03/17/21 07:33 Dose: Not Given Documented by: Lorazepam (Ativan) 1 mg in 2 mls @ 2 mls/min IV UD PRN; Protocol PRN Reason: EtOH Withdrawl AWSS Score 6,7 Stop: 04/15/21 05:22 Last Admin: 03/16/21 06:06 Dose: 2 mls/min Documented by: Lorazepam (Ativan) 2 mg in 4 mls @ 4 mls/min IV UD PRN; Protocol PRN Reason: EtOH Withdrawl AWSS Score 8,9 Stop: 04/15/21 05:22 Last Admin: 03/16/21 09:29 Dose: 4 mls/min Documented by: Lorazepam (Ativan) 3 mg in 6 mls @ 4 mls/min IV ONCE PRN; Protocol PRN Reason: EtOH Withdrawl AWSS Score >=10 Stop: 04/15/21 05:22 [place] Carbonate ([place] Carbonate 300 Mg Tab) 300 mg PO [facility] Stop: 04/16/21 20:59 Mirtazapine (Mirtazapine Tab 15 Mg Tab) 30 mg PO [facility] Stop: 04/16/21 20:59 Miscellaneous (Remove Nicoderm Patch) 1 ea N/A DAILY@858 [facility] Stop: 04/16/21 08:58 Last Admin: 03/17/21 09:23 Dose: 1 ea Documented by: Naltrexone HCl (Naltrexone Hcl 50 Mg Tab) 50 mg PO [facility] Stop: 04/16/21 08:59 Last Admin: 03/17/21 08:13 Dose: 50 mg Documented by: Nicotine (Nicotine 14 Mg/24 Hr Patch) 14 mg TD [facility] Stop: 04/15/21 16:29 Last Admin: 03/17/21 08:14 Dose: 14 mg Documented by: Nitroglycerin (Nitroglycerin Sl 0.4 Mg/Tab Tab) 0.4 mg SL UD PRN PRN Reason: Chest Pain Stop: 04/15/21 05:22 Ondansetron HCl (Ondansetron Inj 2 Mg/Ml 2 Ml Vial) 4 mg IV Q6H PRN PRN Reason: Nausea Stop: 04/15/21 05:22 Last Admin: 03/16/21 05:43 Dose: 4 mg Documented by:
[2021-03-17] MEDS: MIRTAZAPINE TAB 15 MG TAB PO SCH (21:44)
[2021-03-17] MEDS: LITHIUM CARBONATE 300 MG TAB PO SCH (21:44)
[2021-03-18 01:27] LABS: Marijuana Quant, GCMS Urine 375 ng/mL (<5)
[2021-03-18] MEDS ORDERED: Nursing to Pharmacy Communication SCH (05:45)
[2021-03-18] MEDS: NICOTINE 14 MG/24 HR PATCH TD SCH (08:27)
[2021-03-18] MEDS: ATORVASTATIN 20 MG TAB PO SCH (08:27)
[2021-03-18] MEDS: FOLIC ACID 1 MG in SYRINGE 9.8 ML IV SCH (08:28)
[2021-03-18] MEDS: ESCITALOPRAM OXALATE 10 MG TAB PO SCH (08:28)
[2021-03-18] MEDS: NALTREXONE HCL 50 MG TAB PO SCH (08:28)
[2021-03-18] MEDS: GABAPENTIN 600 MG TAB PO SCH ×2 (08:29→21:24)
[2021-03-18] MEDS: THIAMINE HCL 100 MG in SYRINGE 9 ML IV SCH (08:30)
--- NOTE | 2021-03-18 10:03 | Psychiatric Progress Note ---
Date of Service March 18, 2021 Impression / Recommendations Impression 50 year old with a history of alcohol use disorder with recent relapse following residential treatment with worsening depression and SI in context of missing multiple doses of his medication and recent triggering experience of processing past trauma. Diagnostically consistent with unspecified depression-likely a combination of BPD, alcohol-induced and MDD vs BPAD. Schizoaffective disorder seems less convincing given no clear current or historical presentation with psychosis, sounds like BPAD is more likely. Will verify outpatient medications and then restart lithium and consider if SSRI addition appropriate. For now he consents to restarting mirtazapine and naltrexone, reviewed risks, benefits and alternatives. Psych liason will provide additional coping resources. Currently he is deemed unstable and requires ongoing hospitalization (on medical floor due to COVID+ status prohibiting psychiatric admission for now) for diagnostic clarification, safety and stabilization, medication management and development of further coping skills. High acute risk of harm to self given ongoing intermittent SI with recent plan of hanging himself, medication non-adherence, lack of outpatient resources ([facility]ed his [facility] f[facility] after residential tx d/c). 03/18/21: He continues to send somewhat mixed messages regarding his safety at times denying SI and then stating it's hard for him to decipher his mood due to his insomnia. Will keep 1-on-1 for this reason, as there remains some concern he is minimizing his symptoms. Given 1-on-1 ok with him having headphones to help with sleep. He consented to restarting prior to admission prazosin reviewed side effects including but not limited to low BP< syncope, orthostatic hypotension, falls. Repeat COVID test today was negative. Social work determined his follow-up [facility] appointment was with [facility] providers and that process for switching to more local [place] can be lengthy. For now his psychiatric follow-up appointment was rescheduled for early April and converted to televideo appointment. After meeting with the psychiatrist he'll be able to placed on referral list for therapy. (1) MDD (major depressive disorder), recurrent episode, severe: (2) Alcohol use disorder, moderate, dependence: (3) COVID-19: 03/18/21: -Continue 1-on-1 -Ok to have ear buds with cord at night for sleep -Continue [place], escitalopram, mirtazapine, naltrexone -Starting prazosin 2mg qhs for PTSD night terrors (had been on prior to admission) -Awaiting records from recent residential substance use admission to confirm prior to adminission medications -Will need additional negative COVID test (at least 24 hours after 03/18/21 10:35 test); unclear to me if test today was PCR or rapid antigen but will need at least one of the negative tests to be PCR for consideration for psych placement once medically stable. 03/17/21: -Continue 1-on-1 -Increase mirtazapine to 30mg qhs for insomnia which he consents to -Start Li 300mg qhs -Start escitalopram 5mg qAM -Working to verify recent medications and will confirm [facility] with [facility] 03/16/21: -Continue 1-on-1 for safety -[address], cannot leave AMA -Continue AWSS -Restart mirtazapine 15mg qhs and naltrexone 50mg qAM -Will verify dose for lithium before restarting and consider option for SSRI -SW and psych liason helping to provide him with additional resources re: DBT, coping skills, substance use recovery and will attempt to set him up with [place] mental health follow-up -He's agreeable to AA meetings after discharge Risk Factors Assessment Male: Yes : Yes Do You Have Access To A Gun?: No Mental Health Diagnoses: Yes Substance Use Disorders: Yes Hopelessness: Yes Interval History Identifying Information 50 yo man with past psychiatric history of BPD, schizoaffective disorder, trauma and alcohol use disorder admitted due to COVID+ status after presenting for SI on 302 warrant. Chief Complaint "I'm ok but having trouble sleeping at night". Review of Systems Notes reports poor sleep, stable appetite Telehealth Telehealth Options: Telephone only For the duration of the visit, provider was performing the assessment from: The same facility as the patient After establishing a telemedicine visit, patient was: Patient was verified with two unique identifiers, Patient/authorized rep acknowledged consent and understanding and Gave permission to continue telehealth session Total Time Spent (minutes): 30 Subjective Subjective Patient was seen & assessed and interval progress reviewed with treatment team nursing and social work. Reviewed verbally treatment team plan. Continues to sleep poorly and up at night, at home uses white noise and ear buds. Reviewed events from Thursday of him tying knot in sheets and concerns about his safety and thus reason for 1-on-1 and limiting access to potentially harmful items with cords. Chris states that he was "pointing out the hypocrisy of the situation" stating that he was pointing out potential dangerous items "to help" not because he was intended to . He denies any thoughts of SI "like I said I have PTSD and when I'm in a room trying to sleep and there's a person 4 feet from me it instantly wakes me up". He feels it's hard to tell how his mood is because he isn't sleeping well. He requests being allowed to have his ear buds tonight to help with sleep stating "it only has a think copper wire, that can't do any harm, I just want to use them to help with sleep by being able to listen to white noise, the max volume without the ear buds doesn't work". Makes some sarcastic jokes at times, states this is characteristic of his BPD. He hasn't noticed any side effects from restarting the lithium nor from starting the escitalopram. States he's been taking prazosin for the last two years and would like to restart this. He's read through the resources we gave him and he finds this helpful and has been working on the [facility] workbook. Physical Exam Psychiatric Orientation: alert Speech: normal rate/rhythm/volume of speech Mood: + depressed mood Thought Process: goal directed thought process Thought Content: reality based without delusions Suicidal Thoughts: denies suicidal thoughts Homicidal Thoughts: denies homicidal thoughts Hallucinations: no auditory hallucinations and no visual hallucinations Cognition: remote memory grossly intact, attention grossly intact and language grossly intact; + recent memory not intact Estimated Intelligence: consistent with education level Insight: + impaired insight Judgement: + impaired judgement Vital Signs (Past 24 Hours) Last Vital Signs Temp 36.7 C 03/18/21 05:31 Pulse 74 03/18/21 05:31 Resp 20 03/18/21 05:31 BP 122/87 03/18/21 05:31 Pulse Ox 94 03/18/21 05:31 Results & Data ([facility]) Laboratory Results Laboratory Results - last 24 hr 03/16/21 06:00 U Marijuana THC Carboxy 375 H Drug Screen Comment SEE NOTE COVID test negative. Current Inpatient Medications Current Inpatient Medications: Current Inpatient Medications Acetaminophen (Acetaminophen 325 Mg Tab) 650 mg PO Q4H PRN PRN Reason: Pain or Fever Stop: 04/15/21 05:22 Atorvastatin Calcium (Atorvastatin 20 Mg Tab) 20 mg PO [facility] Stop: 04/17/21 08:59 Last Admin: 03/18/21 08:27 Dose: 20 mg Documented by: Escitalopram Oxalate (Escitalopram Oxalate 10 Mg Tab) 5 mg PO [facility] Stop: 04/17/21 08:59 Last Admin: 03/18/21 08:28 Dose: 5 mg Documented by: Gabapentin (Gabapentin 600 Mg Tab) 600 mg PO Q12H [facility] Stop: 03/18/21 20:01 Last Admin: 03/18/21 08:29 Dose: 600 mg Documented by: Gabapentin (Gabapentin 600 Mg Tab) 600 mg PO Q24H [facility] Stop: 03/19/21 17:01 Thiamine HCl 100 mg/ Syringe 10 mls @ 2 mls/min IV [facility] Stop: 04/15/21 08:59 Last Admin: 03/18/21 08:30 Dose: Not Given Documented by: Folic Acid 1 mg/ Syringe 10 mls @ 5 mls/min IV [facility] Stop: 04/15/21 08:59 Last Admin: 03/18/21 08:28 Dose: Not Given Documented by: Lorazepam (Ativan) 1 mg in 2 mls @ 2 mls/min IV UD PRN; Protocol PRN Reason: EtOH Withdrawl AWSS Score 6,7 Stop: 04/15/21 05:22 Last Admin: 03/16/21 06:06 Dose: 2 mls/min Documented by: Lorazepam (Ativan) 2 mg in 4 mls @ 4 mls/min IV UD PRN; Protocol PRN Reason: EtOH Withdrawl AWSS Score 8,9 Stop: 04/15/21 05:22 Last Admin: 03/16/21 09:29 Dose: 4 mls/min Documented by: Lorazepam (Ativan) 3 mg in 6 mls @ 4 mls/min IV ONCE PRN; Protocol PRN Reason: EtOH Withdrawl AWSS Score >=10 Stop: 04/15/21 05:22 [place] Carbonate ([place] Carbonate 300 Mg Tab) 300 mg PO [facility] Stop: 04/16/21 20:59 Last Admin: 03/17/21 21:44 Dose: 300 mg Documented by: Mirtazapine (Mirtazapine Tab 15 Mg Tab) 30 mg PO [facility] Stop: 04/16/21 20:59 Last Admin: 03/17/21 21:44 Dose: 30 mg Documented by: Miscellaneous (Remove Nicoderm Patch) 1 ea N/A DAILY@0859 [facility] Stop: 04/16/21 08:58 Last Admin: 03/18/21 08:29 Dose: 1 ea Documented by: Naltrexone HCl (Naltrexone Hcl 50 Mg Tab) 50 mg PO QAM [facility] Stop: 04/16/21 08:59 Last Admin: 03/18/21 08:28 Dose: 50 mg Documented by: Nicotine (Nicotine 14 Mg/24 Hr Patch) 14 mg TD QAM [facility] Stop: 04/15/21 16:29 Last Admin: 03/18/21 08:27 Dose: 14 mg Documented by: Nitroglycerin (Nitroglycerin Sl 0.4 Mg/Tab Tab) 0.4 mg SL UD PRN PRN Reason: Chest Pain Stop: 04/15/21 05:22 Ondansetron HCl (Ondansetron Inj 2 Mg/Ml 2 Ml Vial) 4 mg IV Q6H PRN PRN Reason: Nausea Stop: 04/15/21 05:22 Last Admin: 03/16/21 05:43 Dose: 4 mg Documented by:
[2021-03-18 11:25] LABS: Basophils # (auto) 0.03 K/uL (0-0.2); Basophils % (auto) 0.4 %; Eosinophils # (auto) 0.21 K/uL (0-0.5); Eosinophils % (auto) 2.9 %; Hematocrit (blood only) 45.2 % (42-52); Hemoglobin 15.3 g/dL (14.0-18.0); Immature Granulocytes # (auto) 0.01 K/uL (0.00-0.02); Immature Granulocytes % (auto) 0.1 %; Lymphocytes # (auto) 2.06 K/uL (1.2-3.4); Lymphocytes % (auto) 28.9 %; Mean Corpuscular Hemoglobin 32.6 pg (25-34); Mean Corpuscular Hgb Conc 33.8 g/dL (32-36); Mean Corpuscular Volume 96.2 fL (80-100); Mean Platelet Volume 9.2 fL (7.4-10.4); Monocytes # (auto) 0.46 K/uL (0.11-0.59); Monocytes % (auto) 6.5 %; Neutrophils # (auto) 4.35 K/uL (1.4-6.5); Neutrophils % (auto) 61.2 %; Platelet Count 355 K/uL (130-400); RDW Coefficient of Variation 12.7 % (11.5-14.5); RDW Standard Deviation 44.7 fL (36.4-46.3); White Blood Count 7.12 K/uL (4.8-10.8)
[2021-03-18 11:53] LABS: Albumin Globulin Ratio 1.5 (0.9-2); Albumin Level 4.4 gm/dl (3.4-5.0); BUN Creatinine Ratio 13.7 (10-20); Bilirubin,Total 0.4 mg/dl (0.2-1.0); Calcium 9.3 mg/dl (8.5-10.1); Creatinine Clr Calc Pharmacy 88.5 ml/min; Est GFR (African American) 98.2 ml/min; Est GFR (Non-African American) 84.7 ml/min; Potassium 3.9 mmol/L (3.5-5.1); Total Protein 7.4 gm/dl (6.0-8.3)
--- NOTE | 2021-03-18 15:42 | Hospitalist Progress Note ---
Date of Service March 18, 2021 Assessment & Plan (1) MDD (major depressive disorder), recurrent episode, severe: Plan: History of major depressive disorder and also borderline personality disorder Recent relapse with missing of multiple doses of medication Presented with suicidal ideation Appreciate psychiatric input and recommendation Remains stable with one-to-one sitter and no more evidence of suicidal ideation Has been started with lithium, mirtazapine and naltrexone Likely discharge in a day or 2 Has been put on oral lithium Labs remain unremarkable Like to be transferred to psychiatric floor tomorrow if Covid PCR test remains negative (2) Suicidal ideation: Plan: As above (3) Alcohol use disorder, moderate, dependence: Plan: Has alcohol abuse disorder Presently on withdrawal protocol on gabapentin and Ativan No signs and/or symptoms of withdrawal Strongly advised to quit drinking (4) COVID-19: Plan: Is fully vaccinated for COVID Noted to have Covid positive without any evidence of symptoms and and/or imaging findings Covid test has been negative today and will repeat PCR test tomorrow DVT prophylaxis He remains quite ambulate in the room no pharmacologic prophylaxis used CODE STATUS Full Admission and Anticipated Discharge Date Admission Date: March 16, 2021 Subjective 03/17/2021 The patient was seen and examined in Covid unit He remains on a one-to-one sitter and is not showing any suicidal ideation since admission He does not have any symptoms secondary to COVID-19 virus infection and he is vaccinated 03/18/2021 Patient was seen and examined in Covid unit He remains on a one-to-one sitter does not have any more suicidal ideation His Covid test came back negative Review of Systems Review of Systems: All systems reviewed and are unremarkable except as noted below Physical Exam Physical Exam: Lying in bed comfortably Constitutional: well developed and well nourished; not ill appearing and not obese Eyes: PERRL, conjunctivae normal, anicteric sclerae ENMT: external ear and nose normal, oropharynx normal Neck: trachea midline, no thyromegaly Respiratory: no respiratory distress Auscultation: lungs clear to auscultation bilaterally Cardiovascular: Rate/Rhythm: regular rate and regular rhythm; not tachycardic Heart Sounds: normal S1 and normal S2; no murmur Extremities: no edema Gastrointestinal (Abdomen): Inspection/Auscultation: normal bowel sounds; abd omen not distended Percussion/Palpation: abdomen soft; abdomen nontender Results & Data Results & Data ([facility]) Vital Signs (Past 12 Hours) Vital Signs Temp Pulse Resp BP Pulse Ox 03/18/21 05:31 36.7 C 74 20 122/87 94 Laboratory Results Short CBC 03/18/21 Range/Units 11:01 WBC 7.12 (4.8-10.8) K/uL Hgb 15.3 (14.0-18.0) g/dL Hct 45.2 (42-52) % Plt Count 355 (130-400) K/uL BMP 03/18/21 11:01 Sodium 137 Potassium 3.9 Chloride 102 Carbon Dioxide 28 BUN 14 Creatinine 1.02 Glucose 82 Calcium 9.3 Liver Function 03/18/21 Range/Units 11:01 Total Bilirubin 0.4 (0.2-1.0) mg/dl AST 20 (13-39) U/L ALT 23 (7-52) U/L Alkaline Phosphatase 63 (34-104) U/L Albumin 4.4 (3.4-5.0) gm/dl Medications Administered Current Inpatient Medications Acetaminophen (Acetaminophen 325 Mg Tab) 650 mg PO Q4H PRN PRN Reason: Pain or Fever Stop: 04/15/21 05:22 Atorvastatin Calcium ([facility]atin 20 Mg Tab) [facility] [place]: 04/17/21 08:59 Last Admin: 03/18/21 08:27 Dose: 20 mg Documented by: Escitalopram Oxalate (Escitalopram Oxalate 10 Mg Tab) [facility] [place]: 04/17/21 08:59 Last Admin: 03/18/21 08:28 Dose: 5 mg Documented by: Gabapentin (Gabapentin 600 Mg Tab) 600 mg PO Q12H [facility] Stop: 03/18/21 20:01 Last Admin: 03/18/21 08:29 Dose: 600 mg Documented by: Gabapentin (Gabapentin 600 Mg Tab) 600 mg PO Q24H [facility] Stop: 03/19/21 17:01 Thiamine HCl 100 mg/ Syringe 10 mls @ 2 mls/[facility] Stop: 04/15/21 08:59 Last Admin: 03/18/21 08:30 Dose: Not Given Documented by: Folic Acid 1 mg/ Syringe 10 mls @ 5 mls/[facility] Stop: 04/15/21 08:59 Last Admin: 03/18/21 08:28 Dose: Not Given Documented by: Lorazepam (Ativan) 1 mg in 2 mls @ 2 mls/min IV UD PRN; Protocol PRN Reason: EtOH Withdrawl AWSS Score 6,7 Stop: 04/15/21 05:22 Last Admin: 03/16/21 06:06 Dose: 2 mls/min Documented by: Lorazepam (Ativan) 2 mg in 4 mls @ 4 mls/min IV UD PRN; Protocol PRN Reason: EtOH Withdrawl AWSS Score 8,9 Stop: 04/15/21 05:22 Last Admin: 03/16/21 09:29 Dose: 4 mls/min Documented by: Lorazepam (Ativan) 3 mg in 6 mls @ 4 mls/min IV ONCE PRN; Protocol PRN Reason: EtOH Withdrawl AWSS Score >=10 Stop: 04/15/21 05:22 [place] Carbonate ([place] Carbonate 300 Mg Tab) 300 mg PO [facility] Stop: 04/16/21 20:59 Last Admin: 03/17/21 21:44 Dose: 300 mg Documented by: Mirtazapine (Mirtazapine Tab 15 Mg Tab) 30 mg PO [facility] Stop: 04/16/21 20:59 Last Admin: 03/17/21 21:44 Dose: 30 mg Documented by: Miscellaneous (Remove Nicoderm Patch) 1 ea N/A DAILY@[id number] [facility] Stop: 04/16/21 08:58 Last Admin: 03/18/21 08:29 Dose: 1 ea Documented by: Naltrexone HCl (Naltrexone Hcl 50 Mg Tab) 50 mg PO [facility] Stop: 04/16/21 08:59 Last Admin: 03/18/21 08:28 Dose: 50 mg Documented by: Nicotine (Nicotine 14 Mg/24 Hr Patch) 14 mg TD [facility] Stop: 04/15/21 16:29 Last Admin: 03/18/21 08:27 Dose: 14 mg Documented by: Nitroglycerin (Nitroglycerin Sl 0.4 Mg/Tab Tab) 0.4 mg SL UD PRN PRN Reason: Chest Pain Stop: 04/15/21 05:22 Ondansetron HCl (Ondansetron Inj 2 Mg/Ml 2 Ml Vial) 4 mg IV Q6H PRN PRN Reason: Nausea Stop: 04/15/21 05:22 Last Admin: 03/16/21 05:43 Dose: 4 mg Documented by: Prazosin HCl (Prazosin Hcl 1 Mg Cap) 2 mg PO [facility] Stop: 04/17/21 20:59
[2021-03-18] MEDS ORDERED: PRAZOSIN HCL 1 MG CAP PO SCH ×2 (21:00)
[2021-03-18] MEDS: MIRTAZAPINE TAB 15 MG TAB PO SCH (21:25)
[2021-03-18] MEDS: LITHIUM CARBONATE 300 MG TAB PO SCH (21:25)
[2021-03-19] MEDS: FOLIC ACID 1 MG in SYRINGE 9.8 ML IV SCH (07:35)
[2021-03-19] MEDS: THIAMINE HCL 100 MG in SYRINGE 9 ML IV SCH (07:36)
[2021-03-19] MEDS: NALTREXONE HCL 50 MG TAB PO SCH (09:10)
[2021-03-19] MEDS: ESCITALOPRAM OXALATE 10 MG TAB PO SCH (09:11)
[2021-03-19] MEDS: NICOTINE 14 MG/24 HR PATCH TD SCH (09:12)
[2021-03-19] MEDS: ATORVASTATIN 20 MG TAB PO SCH (09:12)
[2021-03-19] MEDS ORDERED: FOLIC ACID 1 MG TAB PO SCH (09:30)
[2021-03-19] MEDS ORDERED: THIAMINE HCL 100 MG TAB PO SCH (09:30)
[2021-03-19 11:25] LABS: Influenza A virus by PCR Negative (Neg); Influenza B virus by PCR Negative (Neg); RSV by PCR Negative (Neg); SARS CoV2 RNA(COVID-19) InHosp NEGATIVE (Negative)
--- NOTE | 2021-03-19 11:52 | Psychiatric Progress Note ---
Date of Service March 19, 2021 Impression / Recommendations Impression 50 year old with a history of alcohol use disorder with recent relapse following residential treatment with worsening depression and SI in context of missing multiple doses of his medication and recent triggering experience of processing past trauma. Diagnostically consistent with unspecified depression-likely a combination of BPD, alcohol-induced and MDD vs BPAD. He stabilized during his medical admission, worked on his [employer] workbook and recovery workbook, read resources related to BPD and trauma which he was interested in learning more about, was engaged with aftercare planning through the OR, is motivated to participate in outpatient care, agreeing to attend outpatient AA meetings, notes good social support from his aunt and uncle and feels that his mood has improved after restarting medication. He consistently denied SI during the last two days of his medical admission and while initially there was concern that he may have been minimizing his symptoms, it rather seems that he had a fairly rapid i mprovement in mood and resolution of SI more consistent with BPD-type presentation and alcohol use relapse and that this presentation was less consistent with MDD. Acute risk is low given denial of SI, engagement in aftercare, outpatient supports, development of more coping skills, safety plan completed and avoidance of alcohol use. Chronic risk is moderate given BPD, PTSD, hx mood symptoms with most significant modifiable risk factors to reduce acute and chronic risk being engagement with outpatient psychiatry/psychology services and avoidance of alcohol use. He is motivated in regard to both of these factors and counseled on ways to further reduce risk factors and ways to strengthen protective factors via social supports, attending AA, and engaging in supportive therapy. 03/19/21: He is psychiatrically stable for discharge. He has follow-up psychiatry appointment scheduled and then can be placed on referral list to begin therapy. Repeat Rex level today prior to discharge. Safety plan completed and reviewed. Reviewed emergency and crisis resources. Continues to tolerate his medications without any side effects. Discharge on naltrexone, mirtazapine, lithium, escitalopram and prazosin. (1) MDD (major depressive disorder), recurrent episode, severe: (2) Alcohol use disorder, moderate, dependence: (3) COVID-19: 03/19/21: -Discontinue 1-on-1 -Psychiatrically stable for discharge 03/18/21: -Continue 1-on-1 -Ok to have ear buds with cord at night for sleep -Continue Rex, escitalopram, mirtazapine, naltrexone -Starting prazosin 2mg qhs for PTSD night terrors (had been on prior to admission) -Awaiting records from recent residential substance use admission to confirm prior to adminission medications -Will need additional negative COVID test (at least 24 hours after 03/18/21 10:35 test); unclear to me if test today was PCR or rapid antigen but will need at least one of the negative tests to be PCR for consideration for psych placement once medically stable. 03/17/21: -Continue 1-on-1 -Increase mirtazapine to 30mg qhs for insomnia which he consents to -Start Li 300mg qhs -Start escitalopram 5mg qAM -Working to verify recent medications and [facility] 03[facility]16/21: -Continue 1-on-1 for safety -302 warrant, cannot leave AMA -Continue AWSS -Restart mirtazapine 15mg qhs and naltrexone 50mg qAM -Will verify dose for lithium before restarting and consider option for SSRI - and psych liason helping to provide him with additional resources re: DBT, coping skills, substance use recovery and will attempt to set him up with [place] mental health follow-up -He's agreeable to AA meetings after discharge Risk Factors Assessment Male: Yes : Yes Do You Have Access To A Gun?: No Mental Health Diagnoses: Yes Substance Use Disorders: Yes Hopelessness: No Protective Factors Assessment Stable Relationships: Yes Supportive Family: Yes Interval History Identifying Information 50 yo man with past psychiatric history of BPD, schizoaffective disorder, trauma and alcohol use disorder admitted due to COVID+ status after presenting for SI on 302 warrant. Chief Complaint "I'm feeling much better". Review of Systems Notes Continues to struggle with sleep-he feels this will improve when he's out of the hospital environment, stable appetite. Telehealth Telehealth Options: Telephone only For the duration of the visit, provider was performing the assessment from: The same facility as the patient After establishing a telemedicine visit, patient was: Patient was verified with two unique identifiers, Patient/authorized rep acknowledged consent and understanding and Gave permission to continue telehealth session Total Time Spent (minutes): 35 Subjective Subjective Patient was seen & assessed and interval progress reviewed with treatment team nursing and social work. He reports significant improvement in mood though continues to struggle with his sleep which he attributes to being in the hospital "I'm still having a lot of trouble sleeping, feels like I didn't get any restful sleep". [facility] and saw the emails related to his appointments that were converted to telemedicine visits. Reviewed process and supervisor contact and service clerks for transitioning his care over time from the [facility] to the [place] office. He states he would like to discharge now that he has had two negative COVID tests and to be with his relatives in [place] rather than consider inpatient or dual diagnosis treatment as he was initially considering. Discussed options for inpatient psychiatric treatment which he declines. He feels his mood has improved from medication changes and that the resources we provided him with have been very helpful. He denies SI "I'm not having any of those thoughts whatsoever". He elaborates: " I think it surfaced from discussing trauma at [facility] but it's resolved and I think once I talk with outpatient therapy it will really help. I think before I starting talking about my trauma at [facility] and it was too much, too fast and that just wasn't good and made it all come out". He now reflects that these discussions of trauma brought up to many strong emotions and lead him to relapse on alcohol use and have SI. He now denies any cravings for alcohol, continues to deny SI and feels that reading about the BPD resources was "very helpful". He is looking forward to outpatient therapy, understands he will be referred after he meets with the [place] psychiatrist next month, but that "I'm going to take it slower this time and not jump right into talking about the trauma and maybe only doing once per week therapy, every day was too much". His follow-up appointments are scheduled for April 12. He states he is feeling much better in terms of his mood since starting the lexapro. No side effects from any of his medications. He remains motivated to engage with AA. He completed and reviewed his safety plan with our psychiatric nurse liason and manager social media. He denies any other concerns or questions. Confirmed no access to guns. Physical Exam Psychiatric Orientation: alert and oriented x 3 Speech: normal rate/rhythm/volume of speech Mood: no depressed mood and no anxious mood Thought Process: goal directed thought process Thought Content: reality based without delusions (future oriented) Suicidal Thoughts: denies suicidal thoughts Homicidal Thoughts: denies homicidal thoughts Hallucinations: no auditory hallucinations and no visual hallucinations Cognition: recent memory grossly intact, remote memory grossly intact, attention grossly intact and language grossly intact Insight: + fair insight Judgement: + fair judgement Vital Signs (Past 24 Hours) Last Vital Signs Temp 36.8 C 03/18/21 19:01 Pulse 94 H 03/19/21 09:20 Resp 14 03/19/21 09:20 BP 123/81 03/19/21 09:20 Pulse Ox 96 03/19/21 09:20 Results & Data ([facility]) Laboratory Results Laboratory Results - last 24 hr 03/18/21 03/19/21 11:01 Unknown Sodium 137 Potassium 3.9 Chloride 102 Carbon Dioxide 28 Anion Gap 7 BUN 14 Creatinine 1.02 Est Cr Clr Drug Dosing 88.5 Est GFR ( Amer) 98.2 Est GFR (Non-Af Amer) 84.7 BUN/Creatinine Ratio 13.7 Glucose 82 Calcium 9.3 Total Bilirubin 0.4 AST 20 ALT 23 Alkaline Phosphatase 63 Total Protein 7.4 Albumin 4.4 Globulin 3.0 Albumin/Globulin Ratio 1.5 SARS-CoV-2 (PCR) NEGATIVE Influenza Type A (PCR) Negative Influenza Type B (PCR) Negative RSV (RT-PCR) Negative Current Inpatient Medications Current Inpatient Medications: Current Inpatient Medications Acetaminophen (Acetaminophen 325 Mg Tab) 650 mg PO Q4H PRN PRN Reason: Pain or Fever Stop: 04/15/21 05:22 Atorvastatin Calcium (Atorvastatin 20 Mg Tab) 20 mg PO [facility] Stop: 04/17/21 08:59 Last Admin: 03/19/21 09:12 Dose: 20 mg Documented by: Escitalopram Oxalate (Escitalopram Oxalate 10 Mg Tab) [facility] [place] Stop: 04/17/21 08:59 Last Admin: 03/19/21 09:11 Dose: 5 mg Documented by: Folic Acid (Folic Acid 1 Mg Tab) 1 [facility] [place] Stop: 04/18/21 09:29 Gabapentin (Gabapentin 600 Mg Tab) 600 mg PO Q24H [facility] Stop: 03/19/21 17:01 Lorazepam (Ativan) 1 mg in 2 mls @ 2 mls/min IV UD PRN; Protocol PRN Reason: EtOH Withdrawl AWSS Score 6,7 Stop: 04/15/21 05:22 Last Admin: 03/16/21 06:06 Dose: 2 mls/min Documented by: Lorazepam (Ativan) 2 mg in 4 mls @ 4 mls/min IV UD PRN; Protocol PRN Reason: EtOH Withdrawl AWSS Score 8,9 Stop: 04/15/21 05:22 Last Admin: 03/16/21 09:29 Dose: 4 mls/min Documented by: Lorazepam (Ativan) 3 mg in 6 mls @ 4 mls/min IV ONCE PRN; Protocol PRN Reason: EtOH Withdrawl AWSS Score >=10 Stop: 04/15/21 05:22 [place] Carbonate ([place] Carbonate 300 Mg Tab) 300 mg PO [facility] Stop: 04/16/21 20:59 Last Admin: 03/18/21 21:25 Dose: 300 mg Documented by: Mirtazapine (Mirtazapine Tab 15 Mg Tab) 30 mg PO [facility] Stop: 04/16/21 20:59 Last Admin: 03/18/21 21:25 Dose: 30 mg Documented by: Miscellaneous (Remove Nicoderm Patch) 1 ea N/A DAILY@858 [facility] Stop: 04/16/21 08:58 Last Admin: 03/19/21 09:10 Dose: 1 ea Documented by: Naltrexone HCl (Naltrexone Hcl 50 Mg Tab) 50 mg PO [facility] Stop: 04/16/21 08:59 Last Admin: 03/19/21 09:10 Dose: 50 mg Documented by: Nicotine (Nicotine 14 Mg/24 Hr Patch) 14 mg TD [facility] [place] Stop: 04/15/21 16:29 Last Admin: 03/19/21 09:12 Dose: 14 mg Documented by: Nitroglycerin (Nitroglycerin Sl 0.4 Mg/Tab Tab) 0.4 mg SL UD PRN PRN Reason: Chest Pain Stop: 04/15/21 05:22 Ondansetron HCl (Ondansetron Inj 2 Mg/Ml 2 Ml Vial) 4 mg IV Q6H PRN PRN Reason: Nausea Stop: 04/15/21 05:22 Last Admin: 03/16/21 05:43 Dose: 4 mg Documented by: Prazosin HCl (Prazosin Hcl 1 Mg Cap) 2 mg PO [facility] Stop: 04/17/21 20:59 Last Admin: 03/18/21 21:26 Dose: 2 mg Documented by: Thiamine HCl (Thiamine Hcl 100 Mg Tab) 100 mg PO QAM [facility] Stop: 04/18/21 09:29 Mental Health & Subst Abuse Tx Psychiatrist Name of Psychiatrist: [facility]- Psychiatrist's Date of Appointment with Psychiatrist: 04/12/21 Time of Appointment with Psychiatrist: 10am Psychiatric Appointment Comment: will send zoom link to email Therapist Name of Therapist: [facility] Therapy Appointment Comment: needs referral from PCP/Psychiatrist Post Discharge Appointments Primary Care Physician Name Of Family Doctor: [facility]- Dr. [facility] Date of Appointment with PCP: 04/12/21 Time of Appointment with PCP: 9:30am Provider Appointment Comment: will send zoom link to email
--- NOTE | 2021-03-19 12:01 | Hospitalist Progress Note ---
Date of Service March 19, 2021 Assessment & Plan (1) MDD (major depressive disorder), recurrent episode, severe: Plan: History of major depressive disorder and also borderline personality disorder Recent relapse with missing of multiple doses of medication Presented with suicidal ideation Appreciate psychiatric input and recommendation Remains stable with one-to-one sitter and no more evidence of suicidal ideation Has been started with lithium, mirtazapine and naltrexone Likely discharge in a day or 2 Has been put on oral lithium Labs remain unremarkable Like to be transferred to psychiatric floor tomorrow if Covid PCR test remains negative His Covid PCR test after 24 hours is negative He was seen by the psychiatrist and was advised that he can be discharged home today and does not require to go to psychiatric floor. (2) Suicidal ideation: Plan: As above No more suicidal ideation Remains stable medically (3) Alcohol use disorder, moderate, dependence: Plan: Has alcohol abuse disorder Presently on withdrawal protocol on gabapentin and Ativan No signs and/or symptoms of withdrawal Strongly advised to quit drinking (4) COVID-19: Plan: Is fully vaccinated for COVID Noted to have Covid positive without any evidence of symptoms and and/or imaging findings Covid test has been negative today and will repeat PCR test tomorrow Repeat Covid PCR test after 24 hours is negative DVT prophylaxis He remains quite ambulate in the room no pharmacologic prophylaxis used CODE STATUS Full Will be discharged home today Admission and Anticipated Discharge Date Admission Date: March 16, 2021 Subjective 03/17/2021 The patient was seen and examined in Covid unit He remains on a one-to-one sitter and is not showing any suicidal ideation since admission He does not have any symptoms secondary to COVID-19 virus infection and he is vaccinated 03/18/2021 Patient was seen and examined in Covid unit He remains on a one-to-one sitter does not have any more suicidal ideation His Covid test came back negative 03/19/2021 The patient was seen and examined in Covid unit He remains on one-to-one sitter and is not showing any more suicidal ideation but at times he has been very mean to the nursing staff Denies any symptoms Review of Systems Review of Systems: All systems reviewed and are unremarkable except as noted below Physical Exam Physical Exam: Lying in bed comfortably Constitutional: well developed and well nourished; not ill appearing and not obese Eyes: PERRL, conjunctivae normal, anicteric sclerae ENMT: external ear and nose normal, oropharynx normal Neck: trachea midline, no thyromegaly Respiratory: no respiratory distress Auscultation: lungs clear to auscultation bilaterally Cardiovascular: Rate/Rhythm: regular rate and regular rhythm; not tachycardic Heart Sounds: normal S1 and normal S2; no murmur Extremities: no edema Gastrointestinal (Abdomen): Inspection/Auscultation: normal bowel sounds; abdomen not distended Percussion/Palpation: abdomen soft; abdomen nontender Musculoskeletal: No acute arthritis in any joint Neurologic: patellar DTR's 2+ bilat, sensation intact Results & Data Results & Data ([facility]) Vital Signs (Past 12 Hours) Vital Signs Pulse Resp BP Pulse Ox 03/19/21 09:20 94 H 14 123/81 96 Medications Administered Current Inpatient Medications Acetaminophen (Acetaminophen 325 Mg Tab) 650 mg PO Q4H PRN PRN Reason: Pain or Fever Stop: 04/15/21 05:22 Atorvastatin Calcium (Atorvastatin 20 Mg Tab) 20 mg PO [facility] Stop: 04/17/21 08:59 Last Admin: 03/19/21 09:12 Dose: 20 mg Documented by: Escitalopram Oxalate (Escitalopram Oxalate 10 Mg Tab) [facility] Stop: 04/17/21 08:59 Last Admin: 03/19/21 09:11 Dose: 5 mg Documented by: Folic Acid (Folic Acid 1 Mg Tab) 1 mg PO QAM [facility] Stop: 04/18/21 09:29 Gabapentin (Gabapentin 600 Mg Tab) 600 mg PO Q24H [facility] Stop: 03/19/21 17:01 Lorazepam (Ativan) 1 mg in 2 mls @ 2 mls/min IV UD PRN; Protocol PRN Reason: EtOH Withdrawl AWSS Score 6,7 Stop: 04/15/21 05:22 Last Admin: 03/16/21 06:06 Dose: 2 mls/min Documented by: Lorazepam (Ativan) 2 mg in 4 mls @ 4 mls/min IV UD PRN; Protocol PRN Reason: EtOH Withdrawl AWSS Score 8,9 Stop: 04/15/21 05:22 Last Admin: 03/16/21 09:29 Dose: 4 mls/min Documented by: Lorazepam (Ativan) 3 mg in 6 mls @ 4 mls/min IV ONCE PRN; Protocol PRN Reason: EtOH Withdrawl AWSS Score >=10 Stop: 04/15/21 05:22 [place] Carbonate ([place] Carbonate 300 Mg Tab) 300 mg PO [facility] Stop: 04/16/21 20:59 Last Admin: 03/18/21 21:25 Dose: 300 mg Documented by: Mirtazapine (Mirtazapine Tab 15 Mg Tab) 30 mg PO [facility] Stop: 04/16/21 20:59 Last Admin: 03/18/21 21:25 Dose: 30 mg Documented by: Miscellaneous (Remove Nicoderm Patch) 1 ea N/A DAILY@858 [facility] Stop: 04/16/21 08:58 Last Admin: 03/19/21 09:10 Dose: 1 ea Documented by: Naltrexone HCl (Naltrexone Hcl 50 Mg Tab) 50 mg PO [facility] Stop: 04/16/21 08:59 Last Admin: 03/19/21 09:10 Dose: 50 mg Documented by: Nicotine (Nicotine 14 Mg/24 Hr Patch) 14 mg TD [facility] Stop: 04/15/21 16:29 Last Admin: 03/19/21 09:12 Dose: 14 mg Documented by: Nitroglycerin (Nitroglycerin Sl 0.4 Mg/Tab Tab) 0.4 mg SL UD PRN PRN Reason: Chest Pain Stop: 04/15/21 05:22 Ondansetron HCl (Ondansetron Inj 2 Mg/Ml 2 Ml Vial) 4 mg IV Q6H PRN PRN Reason: Nausea Stop: 04/15/21 05:22 Last Admin: 03/16/21 05:43 Dose: 4 mg Documented by: Prazosin HCl (Prazosin Hcl 1 Mg Cap) 2 mg PO [facility] Stop: 04/17/21 20:59 Last Admin: 03/18/21 21:26 Dose: 2 mg Documented by: Thiamine HCl (Thiamine Hcl 100 Mg Tab) 100 mg PO [facility] Stop: 04/18/21 09:29
[2021-03-19] MEDS ORDERED: GABAPENTIN 600 MG TAB PO SCH (17:00)
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
== END 2021-03-19 15:11 | disposition home or self-care (01) | DRG 885 ==
LOC: ED 22:52 → 2W 03-16 04:33